=== PATIENT | male | born 1940 | race Caucasian/White ===

== ENCOUNTER 2021-10-02 09:46 | Inpatient (IN) ==
[2021-10-02] MEDS ORDERED: 0.9 % Sodium Chloride 1,000 ML IVC ONE (10:33)
[2021-10-02] MEDS ORDERED: Isovue-370 500 ML BOTTLE IVP ONE (10:34)
[2021-10-02] MEDS ORDERED: Ondansetron 4 MG/2 ML VIAL IVP ONE (10:39)
[2021-10-02] MEDS ORDERED: Pantoprazole 40 MG VIAL IVP ONE (10:39)
[2021-10-02 10:49] LABS: Basophils % 0.6 %; Eosinophils # 0.3 K/mcL (0.0-0.6); Eosinophils % 4.9 %; Hematocrit 41.8 % (37.5-50.1); Immature Granulocytes % 0.1 % (0-4); Mean Corpuscular HGB Conc 33.5 g/dL (31.6-35.5); Mean Corpuscular Hemoglobin 29.8 pg (28.0-33.3); Mean Corpuscular Volume 88.9 fL (83.0-100.0); Mean Platelet Volume 11.1 fL (9.4-12.4); Monocytes # 0.7 K/mcL (0.0-1.3); Neutrophils # 3.7 K/mcL (1.6-8.9); Platelet Count 183 K/mcL (140-400); Red Cell Distribution Width 11.8 % (11.5-14.5); Segmented Neutrophils % 54.4 %; White Blood Count 6.7 K/mcL (4.3-11.1)
[2021-10-02 10:59] LABS: INR 1.1; Prothrombin Time 11.7 Seconds (9.4-12.1)
[2021-10-02 11:15] LABS: Alanine Aminotransferase 29 Units/L (7-52); Albumin 4.1 g/dL (3.5-5.7); Albumin/Globulin Ratio 1.5 (1.1-2.2); Alkaline Phosphatase 88 Units/L (34-104); Aspartate Amino Transferase 23 Units/L (13-39); BUN/Creatinine Ratio 14 (6-26); Bilirubin,Direct 0.1 mg/dL (0.0-0.2); Bilirubin,Indirect 0.7 mg/dL (0.0-1.0); Bilirubin,Total 0.8 mg/dL (0.3-1.0); Blood Urea Nitrogen 28 mg/dL (8-23); Calcium 10.5 mg/dL (8.6-10.3); Carbon Dioxide 27 mEq/L (23-29); Chloride 102 mEq/L (98-107); Ethanol < 10 mg/dL (Less than 10); Globulin 2.8 g/dL (2.4-3.5); Glucose 206 mg/dL (70-105); Osmolality,Calculated 297 (280-300); Potassium 3.9 mEq/L (3.5-5.1); Sodium 138 mEq/L (136-145); Total Protein 6.9 g/dL (6.4-8.9); Troponin I 0.03 ng/mL (< 0.04); eGFR For African Americans 40 (> 60); eGFR For Non-African Americans 33 (> 60)
[2021-10-02 11:24] LABS: Thyroid Stimulating Hormone 0.901 mcIU/mL (0.340-5.600)
[2021-10-02] MEDS ORDERED: Aspirin 325 MG TABLET PO ONE (14:27)
[2021-10-02] MEDS ORDERED: *HR* Dextrose 50 % in Water (Syg) 50 ML SYRINGE IVP PRN (15:22)
[2021-10-02] MEDS ORDERED: Dextrose Gel 15 GM/37.5 ML TUBE PO PRN ×2 (15:22)
[2021-10-02] MEDS ORDERED: D5% in Water 1,000 ML IVC PRN (15:22)
[2021-10-02 16:21] LABS: Bilirubin,Urine Negative (Negative); Blood,Urine Negative (Negative); Clarity,Urine Clear (Clear); Color,Urine Light-Yellow (Yellow); Glucose,Urine (UA) 50 mg/dL (Normal); Ketones,Urine Negative (Negative); Leukocyte Esterase,Urine Negative (Negative); Mucus,Urine Few per lpf (None-Few); Nitrite,Urine Negative (Negative); PH,Urine 5.5 pH Units (5.0-8.0); Protein,Urine Trace mg/dL (Neg-Trace); RBC,Urine 0-3 per hpf (0-3); Specific Gravity,Urine > 1.030 (1.010-1.025); Urobilinogen,Urine Normal (Normal); WBC,Urine 0-3 per hpf (0-3)
[2021-10-02 16:42] LABS: Amphetamine Screen,Urine Negative ng/mL (Cutoff=1000); Barbiturate Screen,Urine Negative ng/mL (Cutoff=200); Benzodiazepines Screen,Urine Negative ng/mL (Cutoff=200); Cannabinoid Screen,Urine Negative ng/mL (Cutoff = 50); Cocaine Screen,Urine Negative ng/mL (Cutoff= 300); Opiate Screen,Urine Positive ng/mL (Cutoff=300); Phencyclidine Screen,Urine Negative ng/mL (Cutoff=25)
[2021-10-02] MEDS ORDERED: Perflutren Lipid Microsphere 1.3 ML in 0.9 % Sodium Chloride 8.7 ML IVP PRN (17:14)
[2021-10-02] MEDS ORDERED: Ondansetron 4 MG/2 ML VIAL IVP PRN (17:14)
[2021-10-02] MEDS: Insulin LISPRO 300 UNITS/3 ML VIAL SUBQ SCH (18:21)
[2021-10-02] MEDS: Thiamine (B-1) 100 MG in 0.9 % Sodium Chloride 50 ML IVPB SCH ×2 (18:21→20:56)
[2021-10-02] MEDS ORDERED: Insulin LISPRO 300 UNITS/3 ML VIAL SUBQ SCH (21:00)
[2021-10-03] MEDS ORDERED: *HR* Enoxaparin 30 MG/0.3 ML SYRINGE SQ SCH (06:00)
[2021-10-03 08:17] LABS: VBG HCO3 25 mEq/L (21-27); VBG PCO2 42 mmHg (41-51); VBG PH 7.39 pH Units (7.32-7.42); VBG PO2 84 mmHg (25-50)
[2021-10-03 08:19] LABS: INR 1.1; Prothrombin Time 12.5 Seconds (9.4-12.1)
[2021-10-03 08:20] LABS: Estimated Average Glucose 249 mg/dl; Hemoglobin A1C 10.3 %
[2021-10-03] MEDS ORDERED: Aspirin Enteric Coated 81 MG Tablet PO SCH (09:00)
[2021-10-03 09:25] LABS: Calcium 9.4 mg/dL (8.6-10.3); Chol/HDL Ratio 4.6 (0-4.9)
[2021-10-03 10:21] VITALS: PULSE 63
[2021-10-03 14:39] VITALS: BP 153/67; TEMP 97.9
[2021-10-03 16:58] VITALS: O2SAT 95
[2021-10-03] MEDS: Insulin LISPRO 300 UNITS/3 ML VIAL SUBQ SCH ×2 (17:00→17:37)
[2021-10-03] MEDS: Thiamine (B-1) 100 MG in 0.9 % Sodium Chloride 50 ML IVPB SCH ×2 (17:02→17:37)
== END 2021-10-03 18:33 | disposition home or self-care (01) | DRG 66 ==
LOC: 3BNU 09:46 → EMEROOARM 09:46 → 3BNU 16:33 → SUATTDRO 21:33
PROVIDERS: ADMIT Internal Medicine; ATTEND Student in an Organized Health Care Education/Training Program